=== PATIENT | female | born 1975 | race African-American/Black ===

== ENCOUNTER 2018-03-13 09:01 | Emergency (ER) | payer OTHER ==
[~2018-03-13] VITALS: Ht 167.6 cm; Wt 92.5 kg
[2018-03-13 09:04] VITALS: BP 130/75
--- NOTE | 2018-03-13 09:08 | NUR ---
PATIENT AMBULATED TO BED 4.
--- NOTE | 2018-03-13 09:10 | NUR ---
REPORT GIVEN TO HARSHAL FRANCO
--- NOTE | 2018-03-13 09:10 | NUR ---
42f bib self with c/o pruritus to bl hand since last night. No visible rash to bl hands. Patient also reports of bl eye/lip swelling. No tongue swelling. Patient denies any SOB or difficutly breathing. Clear speech with full sentences. Patient sts taking Benadryl with improvement last night. Pt is aox4 to person, place, situation, and date. RR are even and unlabored. Awaiting er md muñiz. All needs met at this time. Will continue to monitor.
--- NOTE | 2018-03-13 09:28 | NUR ---
Patient discharged with v/s stable. Written and verbal after care instructions given and explained. Patient alert, oriented and verbalized understanding of instructions. Ambulatory with steady gait. All questions addressed prior to discharge. ID band removed. Patient advised to follow up with PMD. Rx of Hydrocortisone 2.5% and Prednisone given. Patient educated on indication of medication including possible reaction and side effects. Opportunity to ask questions provided and answered.
[2018-03-13 09:29] VITALS: BP 130/75
== END 2018-03-13 09:28 | disposition home or self-care (01) ==
LOC: MED 09:01
DX: L25.9 Unspecified contact dermatitis, unspecified cause (principal); R03.0 Elevated blood-pressure reading, without diagnosis of hypertension
CPT/HCPCS: 99283